=== PATIENT | male | born 1955 | race Caucasian/White ===

== ENCOUNTER → 2021-03-31 | Outpatient (CLI) | payer MEDICARE | LOC: COL.VAS 13:38 | DX: I44.4 Left anterior fascicular block (principal) ==

== ENCOUNTER → 2021-04-19 | Outpatient (CLI) | payer MEDICARE ==
[~2021-04-19] VITALS: Ht 175.3 cm; Wt 71.5 kg
[~2021-04-19] MED LIST: BREZTRI AEROS10.7 GM IH; COZAAR100 MG PO; PROAIR HFA0.09 MG/AC IH
[2021-04-19 05:50] VITALS: BP 148/91; PULSE 84; TEMP 97.5
[2021-04-19 07:42] VITALS: BP 127/86; PULSE 73
[2021-04-19 07:45] VITALS: BP 162/101; PULSE 109
[2021-04-19 07:46] VITALS: BP 161/104; PULSE 110
[2021-04-19 07:47] VITALS: BP 165/85; PULSE 110
[2021-04-19 07:48] VITALS: BP 161/87; PULSE 101
== END ==
LOC: COL.CARD 04-12 05:45
DX: I44.4 Left anterior fascicular block (principal)
CPT/HCPCS: A9500; J2785

== ENCOUNTER 2022-05-30 07:28 | Day surgery (SDC) | payer MEDICARE, OTHER ==
[~2022-05-30] VITALS: Ht 175.3 cm; Wt 67.3 kg
[2022-05-30 08:01] VITALS: BP 141/84; PULSE 79; TEMP 97.2
[2022-05-30] MEDS ORDERED: MULTI VITAMINS1 TAB PO (08:12)
[2022-05-30 09:45] VITALS: BP 111/77; PULSE 80; TEMP 98.2
--- NOTE | 2022-05-30 09:45 | NUR ---
PT TRANSPORTED TO [facility] VIA STRETCHER, A&O, DENIES PAIN AT THIS TIME. REPORT RECEIVED FROM ANNA RANDLE. SPOUSE AT BEDSIDE, CALL LIGHT WITHIN REACH; SAFETY MAINTAINED.
[2022-05-30 10:00] VITALS: BP 125/74; PULSE 71
--- NOTE | 2022-05-30 10:00 | NUR ---
PT TOLERATING PO LIQUIDS AND MUFFIN WELL. DISCHARGE INSTRUCTIONS GIVEN TO PT AND SPOUSE; QUESTIONS ANSWERED; UNDERSTANDING VERBALIZED.
[2022-05-30 10:15] VITALS: BP 111/61; PULSE 78
--- NOTE | 2022-05-30 10:24 | NUR ---
MD AT BEDSIDE SPEAKING WITH PT AND SPOUSE.
[2022-05-30 10:28] VITALS: BP 115/67; PULSE 85
--- NOTE | 2022-05-30 10:29 | NUR ---
PT GETTING DRESSED AT THIS TIME; READY FOR DISCHARGE.
--- NOTE | 2022-05-30 10:31 | NUR ---
PT DISCHARGED OUT OF DEPT VIA WC IN STABLE CONDITION WITH PSYCHIATRIC ASSISTANT PRESENT.
== END 2022-05-30 10:31 | disposition home or self-care (01) ==
LOC: SDCO 07:28
DX: D12.5 Benign neoplasm of sigmoid colon (principal); D12.8 Benign neoplasm of rectum; K57.30 Diverticulosis of large intestine without perforation or abscess without bleeding; K64.0 First degree hemorrhoids; I10 Essential (primary) hypertension; Z87.891 Personal history of nicotine dependence
CPT/HCPCS: J2704; J7120